=== PATIENT | male | born 1985 | race Caucasian/White ===

== ENCOUNTER 2019-09-22 19:30 | Emergency (ER) | payer SELFPAY ==
[2019-09-22] MEDS ORDERED: LORazepam 2 MG/ML VIAL ONE (20:05)
[2019-09-22] MEDS ORDERED: NA CHLORIDE 0.9% 1,000 ML ONE (20:05)
[2019-09-22 20:17] LABS: Absolute Lymphocytes (CBC) 3.4 K/uL (0.7-4.9); Hematocrit 42.2 % (39.6-49.0); Lymphocytes % 35.8 % (15.3-44.8); MPV 8.4 fL (7.6-11.3); RBC Red Blood Cell Count 4.89 M/uL (4.33-5.43)
--- NOTE | 2019-09-22 20:37 | RAD REPORT ---
EXAM DESCRIPTION: RAD - Chest Single View - 09/22/2019 8:29 pm CLINICAL HISTORY: CHEST PAIN Chest pain. COMPARISON: <Comparisons> FINDINGS: Portable technique limits examination quality. The lungs are grossly clear. The heart is normal in size. No displaced fractures. IMPRESSION: No acute intrathoracic process suspected.
[2019-09-22 20:42] LABS: Barbiturates NEGATIVE (NEGATIVE); Benzodiazepines NEGATIVE (NEGATIVE); Cocaine NEGATIVE (NEGATIVE); METHAMPHETAM NEGATIVE (NEGATIVE); Methadone NEGATIVE (NEGATIVE); Opiates NEGATIVE (NEGATIVE); Phencyclidine NEGATIVE (NEGATIVE); THC Cannibis NEGATIVE (NEGATIVE)
[2019-09-22 20:45] LABS: Urine Blood TRACE (NEG); Urine Glucose NEGATIVE (NEG); Urine Protein NEGATIVE (NEG); Urine Specific Gravity <1.005 (1.005-1.030)
[2019-09-22 20:45] LABS: ALT/SGPT 100 U/L (12-78); AST/SGOT 53 U/L (15-37); Albumin 4.4 g/dL (3.4-5.0); Alkaline Phosphatase 99 U/L (45-117); BUN Blood Urea Nitrogen 11 mg/dL (7-18); Bicarbonate 25 mmol/L (21-32); Bilirubin Direct 0.1 mg/dL (0-0.2); Bilirubin Total 0.4 mg/dL (0.2-1.0); Glucose Level 103 mg/dL (74-106); NT PRO-BNP 9 pg/mL (<125); Potassium 3.5 mmol/L (3.5-5.1); Protein, Total 8.2 g/dL (6.4-8.2); Sodium Level 141 mmol/L (136-145); Troponin (Emerg Dept Use Only) < 0.02 ng/mL (0.0-0.045)
[2019-09-22 20:56] LABS: Protime INR 0.94
--- NOTE | 2019-09-22 22:09 | ER ---
Nurse's Notes [facility] Name: Bert Mckenna Age: 34 yrs Sex: Male : 1985 Arrival Date: 09/22/2019 Time: 19:36 Bed 15 Private MD: None, None Diagnosis: acute chest pain;acute shortness of breath Presentation: 09/22 19:37 Presenting complaint: Patient states: Shortness of breath and chest pain that started aj1 one hour ago. Denies cough, congestion, fever. Patient reports that he has chronic anxiety. Patient states that he used to take alprazolam and zoloft but has been out of them for 3 months. Transition of care: patient was not received from another setting of care. Onset of symptoms was September 22, 2019 at 18:30. Risk Assessment: Do you want to hurt yourself or someone else? Patient reports no desire to harm self or others. Initial Sepsis Screen: Does the patient meet any 2 criteria? RR > 20 per min. HR > 90 bpm. Yes Does the patient have a suspected source of infection? No. Patient's initial sepsis screen is negative. Care prior to arrival: None. 19:37 Method Of Arrival: Ambulatory aj1 19:37 Acuity: BRIAN 3 aj1 Triage Assessment: 19:39 General: Appears in no apparent distress. uncomfortable, Behavior is anxious. Pain: aj1 Complains of pain in chest. Neuro: Level of Consciousness is awake, alert, obeys commands. Cardiovascular: Patient's skin is warm and dry. Respiratory: Airway is patent Respiratory effort is even, unlabored, Respiratory pattern is regular, symmetrical. Historical: - Allergies: 19:39 NSAIDS; aj1 - Home Meds: 19:39 None [Active]; aj1 - PMHx: 19:39 Anxiety; aj1 - PSHx: 19:39 None; aj1 - Immunization history:: Flu vaccine is not up to date. - Social history:: Smoking status: Patient uses tobacco products, smokes one pack cigarettes per day. - Ebola Screening: : Patient denies travel to an Ebola-affected area in the 21 days before illness onset. - Family history:: not pertinent. - Hospitalizations: : No recent hospitalization is reported. Screenin:48 Abuse screen: Denies threats or abuse. Nutritional screening: No deficits noted. jd3 Tuberculosis screening: No symptoms or risk factors identified. Fall Risk Ambulatory Aid- None/Bed Rest/Nurse Assist (0 pts). Gait- Normal/Bed Rest/Wheelchair (0 pts) Mental Status- Oriented to own ability (0 pts). Total Meyer Fall Scale indicates No Risk (0-24 pts). Assessment: 19:46 General: Appears in no apparent distress. uncomfortable, Behavior is cooperative, jd3 appropriate for age, anxious, Reports anxiety. Pain: Complains of pain in chest Pain does not radiate. Quality of pain is described as sharp, squeezing, Pain began 2 hours ago. Neuro: Level of Consciousness is awake, alert, obeys commands, Oriented to person, place, time, situation. Cardiovascular: Heart tones S1 S2 present Capillary refill < 3 seconds Patient's skin is warm and dry. Respiratory: Reports shortness of breath at rest Airway is patent Respiratory effort is even, unlabored, Respiratory pattern is regular, symmetrical, Breath sounds are clear bilaterally. GI: No signs and/or symptoms were reported involving the gastrointestinal system. Patient currently denies diarrhea, nausea, vomiting. : No signs and/or symptoms were reported regarding the genitourinary system. EENT: No signs and/or symptoms were reported regarding the EENT system. Derm: Skin is intact, Skin is dry, Skin is normal, Skin temperature is warm. Musculoskeletal: Circulation, motion, and sensation intact. Range of motion: intact in all extremities. 20:41 Reassessment: Patient appears in no apparent distress at this time. Patient and/or jd3 family updated on plan of care and expected duration. Pain level reassessed. Patient is alert, oriented x 3, equal unlabored respirations, skin warm/dry/pink. reports feeling a little better, but has continued chest pain/pressure. provider notified. 21:25 Reassessment: Patient appears in no apparent distress at this time. Patient and/or jd3 family updated on plan of care and expected duration. Pain level reassessed. Patient is alert, oriented x 3, equal unlabored respirations, skin warm/dry/pink. Patient states feeling better. 22:14 Reassessment: Patient appears in no apparent distress at this time. Patient and/or jd3 family updated on plan of care and expected duration. Pain level reassessed. Patient is alert, oriented x 3, equal unlabored respirations, skin warm/dry/pink. reported understanding of discharge instructions, decided to sign put AMA after provider discussed treatment with the pt. pt signed AMA form. even and steady gait upon discharge. Patient states feeling better. Vital Signs: 19:39 BP 155 / 103; Pulse 116; Resp 20; Temp 98.2; Pulse Ox 100% on R/A; Weight 81.65 kg (R); aj1 Height 5 ft. 6 in. (167.64 cm) (R); 20:42 BP 140 / 91; Pulse 118; Resp 19 S; Pulse Ox 99% on R/A; jd3 21:26 BP 127 / 67; Pulse 106; Resp 19 S; Pulse Ox 98% on R/A; jd3 19:39 Body Mass Index 29.05 (81.65 kg, 167.64 cm) aj1 ED Course: 19:36 Patient arrived in ED. dp 19:36 None, None is Private Physician. dp 19:38 Triage completed. aj1 19:39 Arm band placed on Patient placed in an exam room. aj1 19:42 Nimesh Landrum MD is Attending Physician. wa 19:46 Kwan Berrios, ITALO is Primary Nurse. jd3 19:49 Patient has correct armband on for positive identification. Bed in low position. Call jd3 light in reach. Side rails up X 1. bus monitor on. Pulse ox on. NIBP on. 19:49 Patient maintains SpO2 saturation greater than 95% on room air. jd3 20:07 Initial lab(s) drawn, by me, sent to lab. Inserted saline lock: 20 gauge in right lt1 antecubital area, using aseptic technique. 20:19 EKG done, by ED staff. lt1 20:29 XRAY Chest (1 view) In Process Unspecified. EDMS 22:08 Jon Cordova MD is Referral Physician. wa 22:13 No provider procedures requiring assistance completed. IV discontinued, intact, jd3 bleeding controlled, No redness/swelling at site. Pressure dressing applied. Administered Medications: 20:10 Drug: Ativan 1 mg Route: IVP; Site: right antecubital; jd3 21:10 Follow up: Response: No adverse reaction jd3 20:10 Drug: NS 0.9% 1000 ml Route: IV; Rate: 1 bolus; Site: right antecubital; jd3 21:51 Follow up: Response: No adverse reaction; IV Status: Completed infusion; IV Intake: jd3 1000ml Intake: 21:51 IV: 1000ml; Total: 1000ml. jd3 Outcome: 22:13 AMA AMA form signed jd3 22:13 Condition: stable 22:13 Discharge instructions given to patient, Instructed on follow up and referral plans. medication usage, Demonstrated understanding of follow-up care, medications, Prescriptions given X 1. 22:15 Patient left the ED. jd3 Signatures: Dispatcher [employer] EDLeia Malone RN RN aj1 Nimesh Landrum MD MD wa Davies, Jonathon, RN RN jd3 Tran, Leah 1 Pablo Lambert Corrections: (The following items were deleted from the chart) 19:39 19:37 Presenting complaint: Patient states: Shortness of breath and chest pain that aj1 started one hour ago. Denies cough, congestion, fever. Patient reports that he has chronic anxiety aj1
--- NOTE | 2019-09-22 22:10 | EDPHYS ---
Physician Documentation [facility] Name: Bert Mckenna Age: 34 yrs Sex: Male : 1985 Arrival Date: 09/22/2019 Time: 19:36 Bed 15 Private MD: None, None ED Physician Nimesh Landrum HPI: 09/22 20:09 This 34 yrs old Male presents to ER via Ambulatory with complaints of Chest Pain. wa 20:09 The patient or guardian reports chest pain that is located primarily in the substernal wa area. The pain does not radiate. Associated signs and symptoms: Pertinent positives: shortness of breath. The chest pain is described as a heaviness, "numb". Duration: The patient or guardian reports a single episode, that is still ongoing, and unchanged. Modifying factors: The symptoms are alleviated by nothing. the symptoms are aggravated by nothing. Severity of pain: At its worst the pain was moderate in the emergency department the pain is unchanged. The patient has experienced similar episodes in the past, a few times, dx'd with "anxiety". The patient has not recently seen a physician. states began an hour ago while smoking CBD cigarette. admits to pain and SOB. denies any other drug use. Historical: - Allergies: 19:39 NSAIDS; aj1 - Home Meds: 19:39 None [Active]; aj1 - PMHx: 19:39 Anxiety; aj1 - PSHx: 19:39 None; aj1 - Immunization history:: Flu vaccine is not up to date. - Social history:: Smoking status: Patient uses tobacco products, smokes one pack cigarettes per day. - Ebola Screening: : Patient denies travel to an Ebola-affected area in the 21 days before illness onset. - Family history:: not pertinent. - Hospitalizations: : No recent hospitalization is reported. ROS: 20:11 Constitutional: Negative for fever, chills, and weight loss, Eyes: Negative for injury, wa pain, redness, and discharge, ENT: Negative for injury, pain, and discharge, Neck: Negative for injury, pain, and swelling, Abdomen/GI: Negative for abdominal pain, nausea, vomiting, diarrhea, and constipation, Back: Negative for injury and pain, : Negative for injury, bleeding, discharge, and swelling, MS/Extremity: Negative for injury and deformity, Skin: Negative for injury, rash, and discoloration, Neuro: Negative for headache, weakness, numbness, tingling, and seizure. 20:11 Cardiovascular: Positive for chest pain, Negative for edema, orthopnea, palpitations. 20:11 Respiratory: Positive for shortness of breath, at rest. 20:11 Psych: Positive for anxiety. 20:11 All other systems are negative. Exam: 20:11 Head/Face: Normocephalic, atraumatic. Eyes: Pupils equal round and reactive to light, wa extra-ocular motions intact. Lids and lashes normal. Conjunctiva and sclera are non-icteric and not injected. Cornea within normal limits. Periorbital areas with no swelling, redness, or edema. ENT: Nares patent. No nasal discharge, no septal abnormalities noted. Tympanic membranes are normal and external auditory canals are clear. Oropharynx with no redness, swelling, or masses, exudates, or evidence of obstruction, uvula midline. Mucous membranes moist. Neck: Trachea midline, no thyromegaly or masses palpated, and no cervical lymphadenopathy. Supple, full range of motion without nuchal rigidity, or vertebral point tenderness. No Meningismus. Chest/axilla: Normal chest wall appearance and motion. Nontender with no deformity. No lesions are appreciated. Abdomen/GI: Soft, non-tender, with normal bowel sounds. No distension or tympany. No guarding or rebound. No evidence of tenderness throughout. Back: No spinal tenderness. No costovertebral tenderness. Full range of motion. Skin: Warm, dry with normal turgor. Normal color with no rashes, no lesions, and no evidence of cellulitis. MS/ Extremity: Pulses equal, no cyanosis. Neurovascular intact. Full, normal range of motion. Neuro: Awake and alert, GCS 15, oriented to person, place, time, and situation. Cranial nerves II-XII grossly intact. Motor strength 5/5 in all extremities. Sensory grossly intact. Cerebellar exam normal. Normal gait. 20:11 Constitutional: The patient appears alert, anxious. 20:11 Cardiovascular: Rate: tachycardic, Rhythm: regular, Pulses: no pulse deficits are appreciated, Heart sounds: murmur, pansystolic. loud, Edema: is not appreciated, JVD: is not appreciated. 20:11 Respiratory: the patient does not display signs of respiratory distress, Respirations: normal, Breath sounds: are clear throughout, Respiratory rate: nml Vital Signs: 19:39 BP 155 / 103; Pulse 116; Resp 20; Temp 98.2; Pulse Ox 100% on R/A; Weight 81.65 kg (R); aj1 Height 5 ft. 6 in. (167.64 cm) (R); 20:42 BP 140 / 91; Pulse 118; Resp 19 S; Pulse Ox 99% on R/A; jd3 21:26 BP 127 / 67; Pulse 106; Resp 19 S; Pulse Ox 98% on R/A; jd3 19:39 Body Mass Index 29.05 (81.65 kg, 167.64 cm) aj1 MDM: 19:42 Patient medically screened. wa 20:13 Differential diagnosis: acute myocardial infarction, anxiety, chest wall pain, wa pericarditis, pneumothorax, pulmonary embolus, stable angina, thoracic aortic disection, unstable angina. 22:04 Data reviewed: vital signs, nurses notes, lab test result(s), EKG. Test interpretation: wa by ED physician or midlevel provider: EKG \\T\\ 20:16 hrs: HR 106. sinus tach. nml axis. no acute zonal ischemic changes. labs abnml for elevated AST/ALT 53/100. ETOH 18. nml troponin. nml CXR. Response to treatment: the patient's symptoms have resolved after treatment. ED course: symptoms resolved in ED. advised pt to stay for obs for serial troponin to r/o ACS. pt declined stating really needs to be back home. pt has capacity and accepts risks as explained to him. understands to return immediately if symptoms reoccur. will have f/u with cardiology otherwise. 09/22 19:55 Order name: Basic Metabolic Panel; Complete Time: 21:10 ga 09/22 19:55 Order name: CBC with Diff; Complete Time: 21:10 ga 09/22 19:55 Order name: LFT's; Complete Time: 21:10 ga 09/22 19:55 Order name: NT PRO-BNP; Complete Time: 21:10 ga 09/22 19:55 Order name: PT-INR; Complete Time: 21:10 ga 09/22 19:55 Order name: Troponin (emerg Dept Use Only); Complete Time: 21:10 ga 09/22 19:55 Order name: XRAY Chest (1 view); Complete Time: 21:10 ga 09/22 19:57 Order name: Acetaminophen; Complete Time: 21:10 ga 09/22 19:57 Order name: ETOH Level; Complete Time: 21:10 ga 09/22 19:57 Order name: Salicylate; Complete Time: 21:10 ga 09/22 19:57 Order name: Urine Drug Screen; Complete Time: 21:10 ga 09/22 20:23 Order name: D-Dimer; Complete Time: 21:11 EDMS 09/22 20:29 Order name: Urine Dipstick--Ancillary (enter results); Complete Time: 21:10 ar5 09/22 19:55 Order name: EKG; Complete Time: 19:57 ga 09/22 19:55 Order name: Cardiac monitoring; Complete Time: 20:07 ga 09/22 19:55 Order name: EKG - Nurse/Tech; Complete Time: 20:20 ga 09/22 19:55 Order name: IV Saline Lock; Complete Time: 20: ga 09/22 19:55 Order name: Labs collected and sent; Complete Time: 20: ga 09/22 19:55 Order name: O2 Per Protocol; Complete Time: 20: ga 09/22 19:55 Order name: O2 Sat Monitoring; Complete Time: 20: ga 09/22 19:57 Order name: Urine Dipstick-Ancillary (obtain specimen); Complete Time: 20:30 ga Administered Medications: 20:10 Drug: Ativan 1 mg Route: IVP; Site: right antecubital; jd3 21:10 Follow up: Response: No adverse reaction jd3 20:10 Drug: NS 0.9% 1000 ml Route: IV; Rate: 1 bolus; Site: right antecubital; jd3 21:51 Follow up: Response: No adverse reaction; IV Status: Completed infusion; IV Intake: jd3 1000ml Disposition: 09/22/19 22:08 Patient has left against medical advice. Impression: acute chest pain, acute shortness of breath. - Patients states they are going to Home. - Condition is Stable. - Discharge Instructions: Shortness of Breath, [id number], Nonspecific Chest Pain, [id number]. - Prescriptions for alprazolam 1 mg Oral tablet - take 1 tablet by ORAL route 3 times per day; 15 tablet. Follow up: Jon Cordova MD; When: 1 - 2 days; Reason: Recheck today's complaints. - Problem is new. - Symptoms have improved. - Notes: follow up with the blending coordinator as advised. return immediately if symptoms reoccur. stop smoking Signatures: Dispatcher [employer] EDNY Leia Albarran RN RN aj1 Nimesh Landrum MD MD wa Davies, Jonathon, RN RN jd3 Corrections: (The following items were deleted from the chart) 20:23 20:14 D-DIMER+COAG.LAB.BRZ ordered. [facility] EDNY 22:15 22:08 09/22/2019 22:08 Patients has left against medical advice. Impression: acute jd3 chest pain; acute shortness of breath. Patient states they are going to Home. Condition is Stable. Follow up: Jon Cordova; When: 1 - 2 days; Reason: Recheck today's complaints. Problem is new. Symptoms have improved. paresh
[2019-09-22 23:22] VITALS: TEMP 98.2
[2019-09-22 23:24] VITALS: BP 127/67; O2SAT 98
--- NOTE | 2019-09-24 12:48 | EKG ---
Test Date: 2019-09-22 Test Time: 20:16:14 Fine Patcher: LMT MEASUREMENT RESULTS: Intervals: Rate: 106 KS: 134 QRSD: 88 QT: 338 QTc: 448 [place]: P: 26 KS: 134 QRS: 6 T: 23 INTERPRETIVE STATEMENTS: Sinus tachycardia Cannot rule out Anterior infarct, age undetermined Abnormal ECG No previous ECG available for comparison Electronically Signed On 09-24-19 12:45:24 WELDER/FITTER by [employer]
== END 2019-09-22 22:15 | disposition left against medical advice (07) ==
LOC: ER 19:30
DX: R07.9 Chest pain, unspecified (principal); F17.210 Nicotine dependence, cigarettes, uncomplicated; Z88.6 Allergy status to analgesic agent
CPT/HCPCS: 36415; 71045; 80048; 80076; 80307; 80320; 80329; 81003; 83880; 84484; 85025; 85379; 85610; 93005; 96361; 96374; 99285; J7030

== ENCOUNTER 2021-07-30 20:56 | Emergency (ER) | payer SELFPAY ==
--- NOTE | 2021-07-30 22:04 | RAD REPORT ---
EXAM DESCRIPTION: RAD - Chest Single View - 07/30/2021 9:58 pm CLINICAL HISTORY: CHEST PAIN Chest pain. COMPARISON: Chest Single View dated 09/22/2019 FINDINGS: Portable technique limits examination quality. The lungs are grossly clear. The heart is normal in size. No displaced fractures. IMPRESSION: No acute intrathoracic process suspected.
[2021-07-30] MEDS ORDERED: METHYLPREDNISOLONE 125 MG INJ ONE (22:59)
[2021-07-30] MEDS ORDERED: LORazepam 2 MG/ML VIAL ONE (23:00)
[2021-07-30] MEDS ORDERED: LEVALBUTEROL 1.25 MG/3 ML NEB ONE (23:01)
[2021-07-30] MEDS ORDERED: MORPHINE 4 MG/ML SYR ONE (23:01)
[2021-07-30] MEDS ORDERED: ONDANSETRON 4 MG/2 ML VIAL ONE (23:01)
[2021-07-30 23:33] LABS: Absolute Lymphocytes (CBC) 2.4 K/uL (0.7-4.9); Basophils % 0.7 % (0-1.3); Hematocrit 44.5 % (39.6-49.0); Lymphocytes % 22.3 % (15.3-44.8); MPV 8.8 fL (7.6-11.3); Protime INR 1.03; RBC Red Blood Cell Count 5.24 M/uL (4.33-5.43)
[2021-07-30 23:35] LABS: Urine Blood Trace-intact (Negative); Urine Glucose Negative (Negative); Urine Protein Negative (Negative); Urine Specific Gravity 1.025 (1.005-1.030)
[2021-07-30 23:52] LABS: ALT/SGPT 86 U/L (12-78); AST/SGOT 41 U/L (15-37); Albumin 4.7 g/dL (3.4-5.0); Alkaline Phosphatase 97 U/L (45-117); BUN Blood Urea Nitrogen 16 mg/dL (7-18); Bicarbonate 24 mmol/L (21-32); Bilirubin Direct 0.2 mg/dL (0-0.2); Glucose Level 90 mg/dL (74-106); Magnesium 2.5 mg/dL (1.8-2.4); NT PRO-BNP 23 pg/mL (<125); Potassium 3.6 mmol/L (3.5-5.1); Protein, Total 8.5 g/dL (6.4-8.2); Sodium Level 140 mmol/L (136-145); Troponin (Emerg Dept Use Only) < 0.02 ng/mL (0.0-0.045)
--- NOTE | 2021-07-31 00:09 | EDPHYS ---
Physician Documentation [facility] Name: Bret Mckenna Age: 36 yrs Sex: Male : 1985 Arrival Date: 07/30/2021 Time: 20:59 Bed 19 Private MD: ED Physician Zeb De La Vega HPI: 07/30 21:58 This 36 yrs old Male presents to ER via Ambulatory with complaints of Chest kiki Pain, High Blood Pressure. 21:58 The patient or guardian reports chest pain that is located primarily in the substernal kiki area. The pain does not radiate. Associated signs and symptoms: Pertinent positives: cough, shortness of breath. The chest pain is described as a heaviness, squeezing. Duration: The patient or guardian reports multiple episodes, with no pattern. Modifying factors: The symptoms are alleviated by application of supplemental oxygen, the symptoms are aggravated by emotionally stressful situations. Severity of pain: At its worst the pain was mild moderate in the emergency department the pain is unchanged. The patient has not experienced similar symptoms in the past. Historical: - Allergies: 21:25 NKDA; wg - Home Meds: 21:25 Hydrocodone-Acetaminophen 5/500 Oral [Active]; Clonidine Oral [Active]; Alprazolam Oral wg [Active]; - PMHx: 21:25 Anxiety; Hypertensive disorder; wg - Immunization history:: Adult Immunizations up to date. - Social history:: Smoking status: Patient reports the use of cigarette tobacco products, smokes one pack cigarettes per day. Patient uses alcohol, only on a social basis. Patient/guardian denies using street drugs, IV drugs. - Family history:: not pertinent. ROS: 21:58 Constitutional: Negative for fever, chills, and weight loss, Eyes: Negative for injury, kiki pain, redness, and discharge, ENT: Negative for injury, pain, and discharge, Neck: Negative for injury, pain, and swelling, Abdomen/GI: Negative for abdominal pain, nausea, vomiting, diarrhea, and constipation, Back: Negative for injury and pain, : Negative for injury, bleeding, discharge, and swelling, MS/Extremity: Negative for injury and deformity, Skin: Negative for injury, rash, and discoloration, Neuro: Negative for headache, weakness, numbness, tingling, and seizure, Psych: Negative for depression, anxiety, suicide ideation, homicidal ideation, and hallucinations, Allergy/Immunology: Negative for hives, rash, and allergies, Endocrine: Negative for neck swelling, polydipsia, polyuria, polyphagia, and marked weight changes, Hematologic/Lymphatic: Negative for swollen nodes, abnormal bleeding, and unusual bruising. 21:58 Cardiovascular: Positive for chest pain, with cough. 21:58 Cardiovascular: Positive for 21:58 Respiratory: Positive for shortness of breath. 21:58 Respiratory: Positive for wheezing, inspiratory, expiratory. 21:58 MS/extremity: Positive for 21:58 Skin: Positive for FLUSHED. Exam: 21:58 Constitutional: This is a well developed, well nourished patient who is awake, alert, kiki and in no acute distress. Head/Face: Normocephalic, atraumatic. Eyes: Pupils equal round and reactive to light, extra-ocular motions intact. Lids and lashes normal. Conjunctiva and sclera are non-icteric and not injected. Cornea within normal limits. Periorbital areas with no swelling, redness, or edema. ENT: Nares patent. No nasal discharge, no septal abnormalities noted. Tympanic membranes are normal and external auditory canals are clear. Oropharynx with no redness, swelling, or masses, exudates, or evidence of obstruction, uvula midline. Mucous membranes moist. Neck: Trachea midline, no thyromegaly or masses palpated, and no cervical lymphadenopathy. Supple, full range of motion without nuchal rigidity, or vertebral point tenderness. No Meningismus. Chest/axilla: Normal chest wall appearance and motion. Nontender with no deformity. No lesions are appreciated. Abdomen/GI: Soft, non-tender, with normal bowel sounds. No distension or tympany. No guarding or rebound. No evidence of tenderness throughout. Back: No spinal tenderness. No costovertebral tenderness. Full range of motion. Male : Normal genitalia with no discharge or lesions. Skin: Warm, dry with normal turgor. Normal color with no rashes, no lesions, and no evidence of cellulitis. MS/ Extremity: Pulses equal, no cyanosis. Neurovascular intact. Full, normal range of motion. Neuro: Awake and alert, GCS 15, oriented to person, place, time, and situation. Cranial nerves II-XII grossly intact. Motor strength 5/5 in all extremities. Sensory grossly intact. Cerebellar exam normal. Normal gait. Psych: Awake, alert, with orientation to person, place and time. Behavior, mood, and affect are within normal limits. 21:58 Cardiovascular: Rate: tachycardic, Rhythm: regular, Pulses: Pulses are 4+ in bilateral radial, brachial, femoral, popliteal, posterior tibial and and dorsalis pedis arteries.. Heart sounds: normal, Edema: is not appreciated, JVD: is not appreciated. 21:58 ECG was reviewed by the Attending Physician. Vital Signs: 21:20 BP 139 / 109; Pulse 102; Resp 24; Temp 98.9; Pulse Ox 100% on R/A; Weight 81.65 kg; wg Height 5 ft. 4 in. (162.56 cm); Pain 8/10; 07/31 00:36 Pain 2/10; bc5 00:36 BP 127 / 99; Pulse 66; Resp 15; Pulse Ox 100% on R/A; Pain 2/10; bc5 07/30 21:20 Body Mass Index 30.90 (81.65 kg, 162.56 cm) wg MDM: 07/30 21:32 Patient medically screened. kiki 22:02 Differential diagnosis: abnormal EKG, anxiety, chest wall pain, esophagitis, pleurisy, kiki pneumonia, pneumothorax, stable angina, unstable angina. HEART Score: History: Slightly Suspicious (0), ECG: Normal (0), Age: < or = 45 years (0), Risk Factors: > or = 3 Risk factors for atherosclerotic disease (2), [Hypertension] [Active Smoker] [+ Family HX] Troponin: < or = 1 x Normal Limit (0). The patient's deep vein thrombosis risk score was calculated as follows: Total Score: 0. This patient was found to be at low risk for a deep vein thrombosis by using the Well's assessment criteria. The patient's pulmonary embolism risk score was calculated as follows: Total Score: 0-2 points. This patient was found to be at low risk for a pulmonary embolism by using the Well's assessment criteria. CÉSAR Risk Score: TOTAL SCORE = 0. Data reviewed: vital signs, nurses notes, lab test result(s), EKG, radiologic studies, plain films. Data interpreted: bus monitor: rate is 102 beats/min, rhythm is regular, Pulse oximetry: on room air is 100 %. Test interpretation: by ED physician or midlevel provider: ECG, plain radiologic studies. Counseling: I had a detailed discussion with the patient and/or guardian regarding: the historical points, exam findings, and any diagnostic results supporting the discharge/admit diagnosis, lab results, radiology results. 07/30 21:30 Order name: Basic Metabolic Panel; Complete Time: 00:07 07/30 21:30 Order name: CBC with Diff; Complete Time: 23:41 07/30 21:30 Order name: LFT's; Complete Time: 00: 07/30 21:30 Order name: Magnesium; Complete Time: 00:07 07/30 21:30 Order name: NT PRO-BNP; Complete Time: 00: 07/30 21:30 Order name: PT-INR; Complete Time: 23:41 07/30 21:30 Order name: Troponin (emerg Dept Use Only); Complete Time: 00: 07/30 21:30 Order name: XRAY Chest (1 view); Complete Time: 22:54 07/30 21:30 Order name: Urine Drug Screen; Complete Time: 00:15 07/30 23:35 Order name: Urine Dipstick-Ancillary; Complete Time: 23:41 EDMS 07/30 21:30 Order name: EKG; Complete Time: 21:31 07/30 21:30 Order name: Cardiac monitoring; Complete Time: 00:36 07/30 21:30 Order name: EKG - Nurse/Tech; Complete Time: 21:54 07/30 21:30 Order name: IV Saline Lock; Complete Time: 00:36 07/30 21:30 Order name: Labs collected and sent; Complete Time: 00:36 07/30 21:30 Order name: O2 Per Protocol; Complete Time: 00:36 07/30 21:30 Order name: O2 Sat Monitoring; Complete Time: 00: 07/30 21:30 Order name: Urine Dipstick-Ancillary (obtain specimen) wg EC:58 Rate is 102 beats/min. Rhythm is regular. QRS [place] is Normal. SC interval is normal. kiki QRS interval is normal. QT interval is normal. No Q waves. T waves are Normal. No ST changes noted. Clinical impression: NSR w/ Non-specific ST/T Changes and No evidence of ischemia. Interpreted by me. Reviewed by me. Administered Medications: 22:39 Not Given (Patient Refused): Aspirin Chewable Tablet 324 mg PO once; 81 mg tablets x 4 bc5 22:39 Not Given (Patient Refused): Norvasc (amlodipine) 10 mg PO once bc5 22:54 Drug: morphine 4 mg Route: IVP; Site: right antecubital; bc5 07/31 00:36 Follow up: Pain 2 Adult; Response: Pain is decreased bc5 07/30 22:54 Drug: Zofran (Ondansetron) 4 mg Route: IVP; Site: right antecubital; bc5 07/31 00:35 Follow up: Response: Nausea is decreased bc5 07/30 22:54 Drug: Ativan (LORazepam) 1 mg Route: IVP; Site: right antecubital; bc5 07/31 00:35 Follow up: Response: Anxiety decreased bc5 07/30 22:54 Drug: Xopenex (levalbuterol) 2.5 mg Route: Inhalation; bc5 07/31 00:35 Follow up: Response: Wheezing diminished bc5 07/30 22:54 Drug: SOLU-Medrol (methylPrednisoLONE) 125 mg Route: IVP; Site: right antecubital; bc5 07/31 00:39 Follow up: Response: No adverse reaction bc5 Disposition Summary: 07/31/21 00:08 Discharge Ordered Location: Home kiki Problem: new kiki Symptoms: have improved kiki Condition: Stable kiki Diagnosis - Chest pain, unspecified kiki - Other specified anxiety disorders kiki - Tobacco abuse counseling kiki - Tobacco use kiki - Acute bronchitis, unspecified kiki - Essential (primary) hypertension kiki Followup: kiki - With: Private Physician - When: 2 - 3 days - Reason: Recheck today's complaints, Continuance of care, Re-evaluation by your physician Followup: kiki - With: - When: 2 - 3 days - Reason: Recheck today's complaints, Re-evaluation by your physician Followup: kiki - With: - When: 2 - 3 days - Reason: Recheck today's complaints, Continuance of care, Re-evaluation by your physician Discharge Instructions: - Discharge Summary Sheet kiki - Nonspecific Chest Pain, Adult kiki - Steps to Quit Smoking kiki - Acute Bronchitis, Adult, [id number] kiki - Nonspecific Chest Pain, Adult, [id number] kiki - Hypertension, Adult kiki - Steps to Quit Smoking, [id number] kiki - Aspirin and Your Heart kiki - Hypertension, Adult, Iafe-kj-Chst kiki - How to Take Your Blood Pressure, Gnsr-bj-Regy kiki - Managing Your Hypertension kiki Forms: - Medication Reconciliation Form kiki - Thank You Letter kiki - Antibiotic Education kiki - Prescription Opioid Use kiki Prescriptions: - albuterol sulfate 90 mcg/actuation Inhalation HFA aerosol inhaler - inhale 2 puff by INHALATION route every 4-6 hours; 1 Pump; Refills: 0, Product kiki Selection Permitted - Hydroxyzine HCl 50 mg Oral Tablet - take 1 tablet by ORAL route every 8 hours As needed; 20 tablet; Refills: 0, kiki Product Selection Permitted - Norvasc 5 mg Oral Tablet - take 1 tablet by ORAL route once daily; 20 tablet; Refills: 0, Product kiki Selection Permitted Signatures: Dispatcher [employer] Zeb Kline MD MD cha Gamba, Liam, RN Siri Taylor RN RN bc5
--- NOTE | 2021-07-31 00:09 | ER ---
Nurse's Notes [facility] Name: Bert Mckenna Age: 36 yrs Sex: Male : 1985 Arrival Date: 07/30/2021 Time: 20:59 Bed 19 Private MD: Diagnosis: Chest pain, unspecified;Other specified anxiety disorders;Tobacco abuse counseling;Tobacco use;Acute bronchitis, unspecified;Essential (primary) hypertension Presentation: 07/30 21:20 Chief complaint: Patient states: Pt states he developed chest pain after work tonCQuotient wg around 1800. States he was in the sun most of the day, didn't drink much and feels like his whole body is burning. Pt states he has a hx of high blood pressure. Pt states the pain is sharp in his chest and in his back. Pt feels weak and says he can't move. Denies N/V/D, abd pain and headache. Pt states his whole body is shaking and states he feels like he is having an anxiety attack. States he has hx of PTSD and anxiety. Coronavirus screen: Vaccine status: Patient reports being unvaccinated. Client denies travel out of the [place] in the last 14 days. At this time, the client does not indicate any symptoms associated with coronavirus-19. Ebola Screen: Patient negative for fever greater than or equal to 101.5 degrees Fahrenheit, and additional compatible Ebola Virus Disease symptoms Patient denies exposure to infectious person. Patient denies travel to an Ebola-affected area in the 21 days before illness onset. Initial Sepsis Screen: Does the patient meet any 2 criteria? No. Patient's initial sepsis screen is negative. Does the patient have a suspected source of infection? No. Patient's initial sepsis screen is negative. Risk Assessment: Do you want to hurt yourself or someone else? Patient reports no desire to harm self or others. Onset of symptoms was July 30, 2021 at 18:00. Care prior to arrival: None. 21:20 Method Of Arrival: Ambulatory 21:20 Acuity: BRIAN 3 wg Triage Assessment: 21:25 General: Appears distressed, well groomed, well developed, Behavior is cooperative, wg anxious. Pain: Complains of pain in Chest into back Pain radiates to back. EENT: No deficits noted. Neuro: No deficits noted. Cardiovascular: Reports chest pain, shortness of breath, Denies nausea, vomiting. Respiratory: No deficits noted. Airway Respiratory effort is even. GI: No deficits noted. : No deficits noted. Derm: Reports "feels like my skin is burning". Musculoskeletal: No deficits noted. Historical: - Allergies: 21:25 NKDA; wg - Home Meds: 21:25 Hydrocodone-Acetaminophen 5/500 Oral [Active]; Clonidine Oral [Active]; Alprazolam Oral wg [Active]; - PMHx: 21:25 Anxiety; Hypertensive disorder; wg - Immunization history:: Adult Immunizations up to date. - Social history:: Smoking status: Patient reports the use of cigarette tobacco products, smokes one pack cigarettes per day. Patient uses alcohol, only on a social basis. Patient/guardian denies using street drugs, IV drugs. - Family history:: not pertinent. Screenin:49 Abuse screen: Denies threats or abuse. Denies injuries from another. Nutritional bc5 screening: No deficits noted. Tuberculosis screening: No symptoms or risk factors identified. Fall Risk None identified. Assessment: 21:46 Reassessment: Pt c/o chest tightness and SOB "I don't know if it is my chest or if it's bc5 my anxiety" when asked if symptoms feel like anxiety Pt's states "yes". 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 21:50 Pain: Pain began 1 hour ago. bc5 Vital Signs: 21:20 BP 139 / 109; Pulse 102; Resp 24; Temp 98.9; Pulse Ox 100% on R/A; Weight 81.65 kg; wg Height 5 ft. 4 in. (162.56 cm); Pain 8/10; 07/31 00:36 Pain 2/10; bc5 00:36 BP 127 / 99; Pulse 66; Resp 15; Pulse Ox 100% on R/A; Pain 2/10; bc5 07/30 21:20 Body Mass Index 30.90 (81.65 kg, 162.56 cm) ED Course: 07/30 20:59 Patient arrived in ED. mr 21:00 Zeb De La Vega MD is Attending Physician. [facility] 21:25 Triage completed. wg 21:29 Arm band placed on right wrist. 21:40 Siri Mathew, RN is Primary Nurse. bc5 21:49 Patient has correct armband on for positive identification. Placed in gown. Bed in low bc5 position. Side rails up X2. 21:49 No provider procedures requiring assistance completed. Patient maintains SpO2 bc5 saturation greater than 95% on room air. 21:50 monitor worker on. Pulse ox on. NIBP on. bc5 21:58 XRAY Chest (1 view) In Process Unspecified. EDMS 07/31 00:08 Andrea Olvera MD is Referral Physician. kiki 00:08 Real Wood MD is Referral Physician. kiki 00:38 IV discontinued, intact, bleeding controlled, No redness/swelling at site. Pressure bc5 dressing applied. Administered Medications: 07/30 22:39 Not Given (Patient Refused): Aspirin Chewable Tablet 324 mg PO once; 81 mg tablets x 4 bc5 22:39 Not Given (Patient Refused): Norvasc (amlodipine) 10 mg PO once bc5 22:54 Drug: morphine 4 mg Route: IVP; Site: right antecubital; bc5 07/31 00:36 Follow up: Pain 2/10 Adult; Response: Pain is decreased bc5 07/30 22:54 Drug: Zofran (Ondansetron) 4 mg Route: IVP; Site: right antecubital; bc5 07/31 00:35 Follow up: Response: Nausea is decreased bc5 07/30 22:54 Drug: Ativan (LORazepam) 1 mg Route: IVP; Site: right antecubital; bc5 07/31 00:35 Follow up: Response: Anxiety decreased bc5 07/30 22:54 Drug: Xopenex (levalbuterol) 2.5 mg Route: Inhalation; bc5 07/31 00:35 Follow up: Response: Wheezing diminished bc5 07/30 22:54 Drug: SOLU-Medrol (methylPrednisoLONE) 125 mg Route: IVP; Site: right antecubital; bc5 07/31 00:39 Follow up: Response: No adverse reaction bc5 Outcome: 00:08 Discharge ordered by . kiki 00:38 Condition: improved bc5 00:38 Discharged to home ambulatory, with family. bc5 00:38 Discharge instructions given to patient, Instructed on discharge instructions, follow up and referral plans. medication usage, safety practices. 00:58 Patient left the ED. bc5 Signatures: Dispatcher [employer] Zeb Kline MD MD cha Rivera, Kendra Michael Erickson, RN Siri Taylor RN RN bc5 Corrections: (The following items were deleted from the chart) 07/30 21:31 21:20 Chief complaint: Patient states: Pt states he developed chest pain after work wg tonight around 1800. States he was in the sun most of the day and feels like his whole body is burning. Pt states he has a hx of high blood pressure. Pt states the pain is sharp in his chest and in his back. Pt feels weak and says he can't move. Denies N/V/D, abd pain and headache. Pt states his whole body is shaking and states he feels like he is having an anxiety attack. States he has hx of PTSD and anxiety. wg
[2021-07-31 00:10] LABS: Barbiturates NEGATIVE (NEGATIVE); Benzodiazepines NEGATIVE (NEGATIVE); Cocaine NEGATIVE (NEGATIVE); METHAMPHETAM NEGATIVE (NEGATIVE); Methadone NEGATIVE (NEGATIVE); Opiates POSITIVE (NEGATIVE); Phencyclidine NEGATIVE (NEGATIVE); THC Cannibis NEGATIVE (NEGATIVE)
[2021-07-31 01:06] VITALS: TEMP 98.9; O2SAT 100
[2021-07-31 01:07] VITALS: BP 127/99
== END 2021-07-31 00:58 | disposition home or self-care (01) ==
LOC: ER 20:56
DX: F41.8 Other specified anxiety disorders (principal); J20.9 Acute bronchitis, unspecified; I10 Essential (primary) hypertension; Z72.0 Tobacco use; Z71.6 Tobacco abuse counseling
CPT/HCPCS: 36415; 71045; 80048; 80076; 80307; 81003; 83735; 83880; 84484; 85025; 85610; 93005; 96374; 96375; 99285; J2405; J2930